=== PATIENT | female | born 1940 | race Caucasian/White ===

== ENCOUNTER 2024-02-04 14:29 | Emergency (ER) | payer MEDICARE, OTHER ==
[~2024-02-04] VITALS: Ht 170.2 cm; Wt 80.3 kg
[2024-02-04] MEDS ORDERED: LISI20TA33 (15:15)
[2024-02-04] MEDS ORDERED: ATOR1TAB21 (15:15)
[2024-02-04 15:54] LABS: BASO % 0.3 % (0.0-1.0); EOS % 0.1 % (0.0-3.0); HEMATOCRIT 40.3 % (36.0-47.0); HEMOGLOBIN 13.9 g/dl (12.0-15.5); LYMPH # 1.7 10^3/uL (1.5-5.0); LYMPH % 19.3 % (24.0-44.0); MEAN CORPUSCULAR HEMOGLOBIN 31.1 pg (27.0-33.0); MEAN CORPUSCULAR HGB CONC 34.5 g/dl (32.0-36.5); MEAN CORPUSCULAR VOLUME 90.2 fl (80.0-96.0); MONO # 0.7 10^3/uL (0.0-0.8); MONO % 7.4 % (2.0-8.0); NEUTROPHILS # 6.6 10^3/uL (1.5-8.5); NEUTROPHILS % 72.7 % (36.0-66.0); PLATELET COUNT, AUTOMATED 159 10^3/uL (150-450); RED BLOOD COUNT 4.47 10^6/uL (4.00-5.40)
[2024-02-04 16:16] LABS: LIPASE 83 U/L (12-53)
[2024-02-04 16:19] LABS: ALBUMIN 3.5 G/DL (3.2-5.2); ALKALINE PHOSPHATASE 56 U/L (46-116); ALT/SGPT 36 U/L (7.0-40); AST/SGOT 46 U/L (<34); BILIRUBIN,DIRECT 0.3 MG/DL (<0.4); BLOOD UREA NITROGEN 11 MG/DL (9-23); CALCIUM LEVEL 8.5 MG/DL (8.3-10.6); CARBON DIOXIDE LEVEL 26 MMOL/L (20-31); CHLORIDE LEVEL 105 MMOL/L (98-107); CREATININE FOR GFR 0.72 MG/DL (0.55-1.30); GLOMERULAR FILTRATION RATE > 60.0 (>32); GLUCOSE, FASTING 132 MG/DL (74-106); POTASSIUM SERUM 4.2 MMOL/L (3.5-5.1); SODIUM LEVEL 138 MMOL/L (136-145); TOTAL PROTEIN 6.9 G/DL (5.7-8.2)
[2024-02-04] MEDS ORDERED: ISOVUE-370 76% 100ML VIAL As Ordered ONE (16:32)
[2024-02-04 16:43] LABS: CK-MB VALUE MASS 2.1 NG/ML (<3.6)
[2024-02-04 16:49] LABS: CPK CREATINE PHOSPHOKINASE 261 U/L (34-145)
[2024-02-04] MEDS: ONDANSETRON 4MG 2ML VIAL IV ONE (17:03)
[2024-02-04] MEDS: NS 500 ML IV ONE (17:07)
[2024-02-04] MEDS: ACETAMINOPHEN *IV* 1,000 MG in IV 1 EA IV ONE (17:09)
[2024-02-04] MEDS ORDERED: PROHANCE 279.3MG/ML 15ML VIAL As Ordered ONE (20:38)
[2024-02-04] MEDS ORDERED: PROHANCE 279.3MG/ML 5ML VIAL As Ordered ONE (20:38)
[2024-02-04 22:02] VITALS: TEMP 98.2
[2024-02-04 23:08] VITALS: BP 126/68; O2SAT 95
[2024-02-05] MEDS ORDERED: ONDA4TAB6 PO (00:47)
== END 2024-02-05 00:52 | disposition home or self-care (01) ==
LOC: M ED 14:29
DX: K52.9 Noninfective gastroenteritis and colitis, unspecified (principal); K86.2 Cyst of pancreas; I45.9 Conduction disorder, unspecified; I44.7 Left bundle-branch block, unspecified; I10 Essential (primary) hypertension; E78.5 Hyperlipidemia, unspecified; Z79.02 Long term (current) use of antithrombotics/antiplatelets; Z79.811 Long term (current) use of aromatase inhibitors; Z79.899 Other long term (current) drug therapy
CPT/HCPCS: 71045; 74177; 74183; 80048; 80076; 81001; 82550; 82553; 83605; 83690; 84484; 85025; 87086; 93005; 96361; 96374; 96375; 99284; A9576; J0131; J2405; Q9967

== ENCOUNTER 2024-03-18 08:14 | Day surgery (SDC) | payer MEDICARE, OTHER ==
[~2024-03-18] VITALS: Ht 167.6 cm; Wt 77.1 kg
[~2024-03-18 08:14] MED LIST: ATOR1TAB21 PO; LISI20TA33 PO; NS 1,000 ML IV ONE; ONDA-282 PO
[2024-03-18] MEDS ORDERED: propofoL 200 MG/20 ML VIAL As Ordered ONE (09:22)
[2024-03-18 09:36] VITALS: TEMP 98.8
[2024-03-18 09:59] VITALS: BP 142/69; O2SAT 95
== END 2024-03-18 10:05 | disposition home or self-care (01) ==
LOC: M OPP 08:14
PROVIDERS: ATTEND Surgery
DX: R93.3 Abnormal findings on diagnostic imaging of other parts of digestive tract (principal); Q43.8 Other specified congenital malformations of intestine; I10 Essential (primary) hypertension; Z79.02 Long term (current) use of antithrombotics/antiplatelets; Z79.899 Other long term (current) drug therapy